=== PATIENT | female | born 1980 | race Caucasian/White ===

== ENCOUNTER 2023-08-01 16:34 | Emergency (ER) | payer BC ==
[2023-08-01 16:55] VITALS: BP 145/88; O2SAT 100
--- NOTE | 2023-08-01 17:48 | ED Physician Documentation ---
History of Present Illness - Stated complaint Stated Complaint: RT THUMB PX - Chief complaint Chief Complaint: Trauma Ext - History obtained from History obtained from: Patient - Additonal information Additional information: 43-year-old female presents after accidentally bending her right thumb backwards. She fell on a piece of wood hit her hand and pulled the thumb backwards. She felt or heard a popping sensation and since then she has had decreased range of motion of the thumb due to pain, mild swelling, generalized discomfort. She has not attempted any treatment for this issue. PD PAST MEDICAL HISTORY - Past Medical History Past Medical History: No - Past Surgical History Past Surgical History: Yes General: Cholecystectomy - Present Medications Home Medications: Ambulatory Orders Medication Instructions Recorded Confirmed No Known Home Medications 08/01/23 08/01/23 - Allergies Allergies/Adverse Reactions: Allergies Allergy/AdvReac Type Severity Reaction Status Date / Time No Known Drug Allergies Allergy Verified 08/01/23 16:48 - Social History Does the pt smoke?: No Smoking Status: Never smoker Does the pt drink ETOH?: No Does the pt have substance abuse?: No - Immunizations Immunizations are current?: Yes - POLST Patient has POLST: No PD ED PE NORMAL - Vitals Vital signs reviewed: Yes - General General: Alert and oriented X 3, No acute distress, Well developed/nourished - Derm Derm: Normal color, Warm and dry, No rash - Extremities Extremities: No deformity, Other (There is mild swelling of the right thumb no erythema. No obvious deformity. Decreased flexion extension opposition due to pain that she does have some movement. No other hand or wrist abnormalities.) Results - Vitals Vitals: Vital Signs - 24 hr 08/01/23 16:46 Temperature 37.1 C Heart Rate 107 H Respiratory 20 Rate Blood Pressure 145/88 H O2 Saturation 100 Oxygen O2 Source Room air - Rads (name of study) No standard instances Relevant Findings:: Final report received PD Medical Decision Making - ED course Complexity details: reviewed results, d/w patient ED course: 43-year-old female presented with a Right thumb injury as described in HPI. She has generalized right thumb discomfort with trace swelling, no obvious deformity. X-ray is negative however I discussed with patient that if no improvement with supportive measures including thumb spica splint, ibuprofen Tylenol and cool compress over the course the next week or so to follow-up with her primary doctor for possible repeat imaging for occult fracture. Patient discharged home in stable condition. Departure - Departure Disposition: 01 Home, Self Care Clinical Impression: Sprain of hand, thumb, right Qualifiers: Encounter type: initial encounter Sprain of finger site: other site Qualified Code(s): S63.681A - Other sprain of right thumb, initial encounter Condition: Good Instructions: ED Sprain Finger Comments: You have likely sustained a sprain of the thumb. The x-ray does not show any broken bones. We gave you a splint called a thumb spica splint which will help immobilize the thumb and wrist. Use this until symptoms improve. You can also use a cool compress, ibuprofen and Tylenol for your pain. If you are still having pain beyond a week or so, follow-up with your primary doctor and consider repeat imaging at that time as sometimes tiny fractures are missed on initial evaluation. Forms: PCP List
--- NOTE | 2023-08-01 18:01 | XRAY Report ---
PROCEDURE: Finger(s) RT INDICATIONS: Trauma TECHNIQUE: AP hand, 2 views of the thumb finger(s) acquired. COMPARISON: None. FINDINGS: Bones: No fractures or dislocations. No suspicious bony lesions. Soft tissues: No suspicious soft tissue calcifications or masses. IMPRESSION: No acute bony abnormality. Reviewed by: Baldo Rawls MD on 08/01/2023 4:59 PM AKDT Approved by: Baldo Rawls MD on 08/01/2023 4:59 PM AKDT Station ID: [id number]
== END 2023-08-01 18:14 | disposition home or self-care (01) ==
LOC: ED 16:34
DX: S63.681A Other sprain of right thumb, initial encounter (principal); W01.0XXA Fall on same level from slipping, tripping and stumbling without subsequent striking against object, initial encounter
CPT/HCPCS: 99283

== ENCOUNTER 2023-08-17 12:39 | Emergency (ER) | payer BC ==
[2023-08-17 12:53] VITALS: BP 130/83; O2SAT 99
--- NOTE | 2023-08-17 13:05 | ED Physician Documentation ---
PD HPI UPPER EXT INJURY - Stated complaint Stated Complaint: RT THUMB SWELLING/ACHE - Chief complaint Chief Complaint: Trauma Ext - History obtained from History obtained from: Patient - Additonal information Additional information: She fell about a week ago and injured her right thumb. She was seen here with negative regular radiographs and placed in a splint. She has been only using the splint very intermittently. Pain persistent and in the area of the first MCP. PD PAST MEDICAL HISTORY - Past Medical History Past Medical History: No - Past Surgical History Past Surgical History: Yes General: Cholecystectomy - Present Medications Home Medications: Ambulatory Orders Medication Instructions Recorded Confirmed No Known Home Medications 08/01/23 08/17/23 - Allergies Allergies/Adverse Reactions: Allergies Allergy/AdvReac Type Severity Reaction Status Date / Time No Known Drug Allergies Allergy Verified 08/17/23 12:53 - Social History Does the pt smoke?: No Smoking Status: Never smoker Does the pt drink ETOH?: No Does the pt have substance abuse?: No - Immunizations Immunizations are current?: Yes - POLST Patient has POLST: No PD ED PE NORMAL - Vitals Vital signs reviewed: Yes - General General: Alert and oriented X 3, No acute distress - Extremities Extremities: Other (She is tender over the MCP of the right thumb. There is no snuffbox tenderness. She cannot range the thumb due to pain. Normal distal neurovascular function.) - Neuro Neuro: Alert and oriented X 3, Normal speech Results - Vitals Vitals: Vital Signs - 24 hr 08/17/23 12:48 Temperature 36.7 C Heart Rate 99 Respiratory 15 Rate Blood Pressure 130/83 H O2 Saturation 99 Oxygen O2 Source Room air - Rads (name of study) R thumb Relevant Findings:: Final report received, EMP independent interpretation of test PD Medical Decision Making - ED course ED course: On my view of the x-ray it looks pretty normal and she was advised to go back into the thumb spica splint and wear it more religiously. The radiologist's opinion was that there might be a very minor/questionable fracture of the distal metacarpal. Even on rereview of maximum magnification I really do not see anything but the patient was so updated with more mandatory orthopedic follow-up and she voices understanding. Departure - Departure Disposition: 01 Home, Self Care Clinical Impression: Sprain of hand, thumb, right Qualifiers: Encounter type: initial encounter Sprain of finger site: metacarpophalangeal joint Qualified Code(s): S63.641A - Sprain of metacarpophalangeal joint of right thumb, initial encounter Condition: Good Record reviewed to determine appropriate education?: Yes Instructions: ED Sprain Finger Follow-Up: Orthopedic Care [Provider Group] - Within 1 week Comments: Wear the splint a little more religiously than you have been, you do not need to wear it while sleeping or while bathing but the rest of the time you should. Follow-up with the orthopedics clinic in a week if not better. Return for new or worsening symptoms. Forms: PCP List Discharge Date/Time: 08/17/23 13:31
--- NOTE | 2023-08-17 13:33 | XRAY Report ---
PROCEDURE: Finger(s) RT INDICATIONS: persistent finger pain TECHNIQUE: AP hand, 2 views of the thumb acquired. COMPARISON: 08/01/2023. FINDINGS: Bones: Question tiny avulsion off of the ulnar volar surface of the distal head of the first metacar pal. This is not definite. It is nondisplaced. No other fractures or dislocations. No suspicious bony lesions. Soft tissues: No suspicious soft tissue calcifications or masses. IMPRESSION: Question tiny avulsion fracture off the first metacarpal head. This is not definite. Comment: Consider MRI for confirmation on a nonemergent basis Reviewed by: Washington Pardo MD on 08/17/2023 1:32 PM PDT Approved by: Washington Pardo MD on 08/17/2023 1:32 PM PDT Station ID: [id number]
== END 2023-08-17 13:31 | disposition home or self-care (01) ==
LOC: ED 12:39
DX: S63.641A Sprain of metacarpophalangeal joint of right thumb, initial encounter (principal); W18.39XA Other fall on same level, initial encounter
CPT/HCPCS: 99283; 99284